=== PATIENT | male | born 1985 | race Caucasian/White ===

== ENCOUNTER 2020-06-13 22:15 | Emergency (ER) | payer SELFPAY ==
[~2020-06-13] VITALS: Ht 165.1 cm; Wt 73.1 kg
[2020-06-13 22:25] VITALS: BP 126/81
[2020-06-13] MEDS ORDERED: RX-ONDANSETRON 4 MG ODT (ZOFRAN) PPK #4 PO STA (22:52)
[2020-06-13] MEDS ORDERED: KETOROLAC 60 MG/2 ML VIAL IM ONE (23:00)
--- NOTE | 2020-06-13 23:00 | ED GI ---
General Chief Complaint: Abdominal/GI Problems Stated Complaint: VOMITING,LIGHTHEADED,DIZZY Nursing Triage Note: pt c/oo migraine starting this am after getting off work, states he started vomiting around 10 am before he went back to bed, got up this evening still with migraine and emesis Sepsis Screen: No Definite Risk Source of Information: Patient Exam Limitations: No Limitations History of Present Illness Date Seen by Provider: Jun 13, 2020 Time Seen by Provider: 22:43 Initial Comments Patient presents ER by private conveyance from home with chief complaint that he is post to work tonight but he is having some dizziness, nausea headache. He says his headaches are frequent every week and this time however he got off work in the morning with a mild sore throat which she just chalked up to some concrete dust. However he started having some vomiting and feels dehydrated. He took some Tylenol Motrin but had no fever just some sweats. No known sick contacts. No cough diarrhea or trauma. Allergies and Home Medications Allergies Coded Allergies: No Known Drug Allergies (Unverified , 06/13/20) Patient Home Medication List Home Medication List Reviewed: Yes Review of Systems Review of Systems Constitutional: No chills; diaphoresis; No fever; malaise EENTM: No Blurred Vision, No Double Vision Respiratory: Denies Cough, Denies Shortness of Air Cardiovascular: Denies Chest Pain, Denies Lightheadedness Gastrointestinal: Denies Constipated, Denies Diarrhea; Nausea, Poor Fluid Intake, Vomiting Genitourinary: Denies Burning, Denies Discharge Musculoskeletal: No back pain, No joint pain All Other Systems Reviewed Negative Unless Noted: Yes Past Bvambmg-Uaxexm-Odywqc Hx Patient Social History Alcohol Use: Denies Use Smoking Status: Current Everyday Smoker 2nd Hand Smoke Exposure: No Recent Infectious Disease Expo: No Recent Hopitalizations: No Seasonal Allergies Seasonal Allergies: No Past Medical History Surgeries: No Respiratory: No Cardiac: No Neurological: No Genitourinary: No Gastrointestinal: No Musculoskeletal: No Endocrine: No HEENT: No Cancer: No Psychosocial: No Integumentary: No Blood Disorders: No Physical Exam Vital Signs Vital Signs - First Documented 06/13/20 22:25 Temp 36.5 Pulse 84 Resp 18 B/P (MAP) 126/81 (96) O2 Delivery Room Air Capillary Refill : Less Than 3 Seconds Height/Weight/BMI Height: '" Weight: lbs. oz. kg; 26.00 BMI Method: General Appearance: WD/WN, no apparent distress HEENT: PERRL/EOMI, pharynx normal, other (Bilateral ears with mucoid effusion right worse than left. Mild injection) Neck: full range of motion, normal inspection Respiratory: no respiratory distress, no accessory muscle use Cardiovascular: normal peripheral pulses, regular rate, rhythm, no edema Extremities: normal range of motion, non-tender, normal inspection, normal capillary refill Neurologic/Psychiatric: alert, normal mood/affect, oriented x 3 Skin: normal color, warm/dry Progress/Results/Core Measures Results/Orders Lab Results Laboratory Tests Test 06/13/20 22:41 Range/Units Glucometer 98 70-110 MG/DL My Orders Orders - KISHORE VELÁZQUEZ Accucheck Stat ONCE (06/13/20 22:35) Ketorolac Injection (Toradol Injection) (06/13/20 23:00) Rx-Ondansetron Po (Rx-Zofran Po) (06/13/20 22:52) Vital Signs/I&O 06/13/20 22:25 Temp 36.5 Pulse 84 Resp 18 B/P (MAP) 126/81 (96) O2 Delivery Room Air Blood Pressure Mean: 96 [facility] Bedside Testing Finger Stick Blood Glucose: 98 Progress Progress Note : Time: 22:56 Progress Note Otitis media effusion. Plan to put him on a topical steroid. Plan to have him stop taking the Metformin while he is sick and resume it 1 to 2 weeks after he feels well. 30 mg IM Toradol for his headache and ondansetron take-home pack. We did offer to do some labs given some IV fluids and more thorough evaluation but at this time he does not appear to be acutely ill and it would be reasonable to attempt oral rehydration. Patient agrees with this plan and wishes to pursue a conservative course. Sindhu put him off work for couple days and give him some return precautions. We have also given him instructions to follow-up with Dr. Bermudez by Thursday if his symptoms are not improving. No red flag syndrome for his headache. Departure Impression Primary Impression: Headache Qualified Codes: G44.219 - Episodic tension-type headache, not intractable Additional Impressions: Right otitis media with effusion Viral labyrinthitis syndrome Qualified Codes: H83.01 - Labyrinthitis, right ear; B97.89 - Other viral agents as the cause of diseases classified elsewhere Disposition: 01 HOME, SELF-CARE Condition: Stable Departure-Patient Inst. Decision time for Depature: 22:55 Referrals: BUDDY BERMUDEZ MD (PCP/Family) Primary Care Physician Patient Instructions: Headache, Adult, Serous Otitis Media (DC) Add. Discharge Instructions: You have a viral infection that is probably causing the increase in collection of fluid in your middle ear which is causing your dizziness as well as contributing to your headaches. This is also probably explaining the nausea and sore throat. Salt water gargles can help with the sore throat and swelling. Tylenol 1000 mg every 8 hours as necessary for headache, chills or fever. Ibuprofen 800 mg every 8 hours as necessary for headaches, chills or fever. Zofran/ondansetron 1 to 2 tablets every 6 hours as necessary for nausea and vomiting. If you are still having symptoms by Thursday then you need to follow-up with Dr. Bermudez in the clinic. Return to the nearest ER promptly if you experience fever above 102.5, intractable vomiting, intractable pain despite the above recommendations. All discharge instructions reviewed with patient and/or family. Voiced understanding. Scripts Ondansetron (Ondansetron Odt) 4 Mg Tab.rapdis 4 MG PO Q6H PRN for NAUSEA/VOMITING, #15 TAB 0 Refills Prov: KISHORE VELÁZQUEZ 06/13/20 Work/School Note: Work Release Form Date Seen in the Emergency Department: Jun 13, 2020 Return to Work: Jun 18, 2020 Restrictions: No Restrictions KISHORE VELÁZQUEZ Jun 13, 2020 23:00
[2020-06-13] MEDS ORDERED: ONDA4TAB11 PO (23:02)
== END 2020-06-13 23:05 | disposition home or self-care (01) ==
LOC: EDBD 22:17 → ER FS 22:17
DX: G44.219 Episodic tension-type headache, not intractable (principal); H65.91 Unspecified nonsuppurative otitis media, right ear; H83.01 Labyrinthitis, right ear; B97.89 Other viral agents as the cause of diseases classified elsewhere; F17.200 Nicotine dependence, unspecified, uncomplicated
CPT/HCPCS: 82962